=== PATIENT | male | born 1960 | race Caucasian/White ===

== ENCOUNTER 2022-06-12 11:45 | Outpatient (CLI) | payer BC | END 2022-06-12 11:46 | disposition home or self-care (01) | LOC: PET 11:45 | PROVIDERS: ATTEND Internal Medicine | DX: R91.1 Solitary pulmonary nodule (principal) | CPT/HCPCS: 78815; A9552 ==

== ENCOUNTER 2022-11-02 12:22 | Outpatient (CLI) | payer BC | END 2022-11-02 12:23 | disposition home or self-care (01) | LOC: RAD 12:22 | PROVIDERS: ATTEND Internal Medicine | DX: J98.4 Other disorders of lung (principal) | CPT/HCPCS: 71046 ==